=== PATIENT | male | born 1950 | race Caucasian/White ===

== ENCOUNTER 2016-06-16 00:22 | Emergency (ER) | payer OTHER ==
[2016-06-16 00:31] VITALS: BP 149/84; PULSE 91; RESP 16; TEMP 98.1; O2SAT 93
--- NOTE | 2016-06-16 00:38 | EDPHY ---
H & P Stated Complaint: sore throat x 5 days HPI/ROS: HPI CHIEF COMPLAINT: Sore throat x5 days, dry cough HISTORY OF PRESENT ILLNESS: This patient very pleasant 65-year-old male he presents emergency room at almost 1 o'clock in the morning with sore throat persistently getting worse over the past 5 days. Patient tells me that he was seen by his primary care doctor yesterday and had a strep test done however he is not aware of the results he tried to call their get the results and they are unable to provide him with an information. He tells me that his pain is persistent and he cannot tolerate it any more he denies trouble swallowing, he denies shortness of breath chest pain or fever. He denies change in voice. Denies drooling. Past Medical History: Hypertension, hyperlipidemia Past Surgical History: No significant surgical history except for cholecystectomy Social History: Occasional alcohol use, denies drugs or tobacco products Family History: Noncontributory ROS REVIEW OF SYSTEMS: A comprehensive 10 point review of systems is otherwise negative aside from elements mentioned in the history of present illness. Exam Constitutional triage nursing summary reviewed, vital signs reviewed, awake/ alert. Eyes normal conjunctivae and sclera, EOMI, PERRLA. HENT posterior pharynx erythematous uvula slightly swollen consistent with uvulitis, there is no exudate present, soft palate normal, uvula is midline, no stridor, no trismus, no signs of DINING ROOM BUSSER, no signs of Kwame's, normal dentition, TMs bilaterally are clear, there is nasal congestion on bilateral nares exam, atraumatic, moist mucus membranes, no epistaxis, neck supple/ no meningismus, no raccoon eyes. Respiratory clear to auscultation bilaterally, normal breath sounds, no respiratory distress, no wheezing. Cardiovascular rate normal, regular rhythm, no murmur, no edema, distal pulses normal. Gastrointestinal soft, non-tender, no rebound, no guarding, normal bowel sounds, no distension, no pulsatile mass. Genitourinary no CVA tenderness. Musculoskeletal no midline vertebral tenderness, full range of motion, no calf swelling, no tenderness of extremities, no meningismus, good pulses, neurovascularly intact. Skin pink, warm, & dry, no rash, skin atraumatic. Neurologic awake, alert and oriented x 3, AAOx3, moves all 4 extremities equally, motor intact, sensory intact, CN II-XII intact, normal cerebellar, normal vision, normal speech. Psychiatric normal mood/affect. Heme/Lymph/Immune no lymphadenopathy. Differential Diagnosis:includes but is not limited to in a particular order, strep pharyngitis, viral pharyngitis, uvulitis Medical Decision Making: I have sent a rapid strep. Patient has been given ibuprofen 800 mg here in emergency room, 1st dose of amoxicillin and Decadron 8 mg. Will empirically treat for strep pharyngitis given symptoms have been persistent for 5 days his uvula is swollen and he has somewhat significant amount of pain. There is no signs of deeper space infection on exam no indication to image. Will place on a prescription of amoxicillin, Decadron for 3 days, ibuprofen he does understand if he develops any worsening symptoms return to the emergency room. This includes high fever, trouble swallowing, change in voice. Rapid strep negative. We will still treat. Patient understands return emergency room if develops worsening symptoms questions concerns Source: Patient - Personal History Current Tetanus/Diphtheria Vaccine: Unsure Current Tetanus Diphtheria and Acellular Pertussis (TDAP): Unsure - Medical/Surgical History Hx Asthma: No Hx Chronic Respiratory Disease: No Hx Diabetes: No Hx Cardiac Disease: No Hx Renal Disease: No Hx Cirrhosis: No Hx Alcoholism: No Hx HIV/AIDS: No Hx Splenectomy or Spleen Trauma: No Other PMH: HTN, High cholesterol - Social History Smoking Status: Never smoked Constitutional: Initial Vital Signs Temperature (C) 36.7 C 06/16/16 00:27 Heart Rate 91 06/16/16 00:27 Respiratory Rate 16 06/16/16 00:27 Blood Pressure 149/84 H 06/16/16 00:27 O2 Sat (%) 93 06/16/16 00:27 O2 Delivery Mode Room Air Allergies/Adverse Reactions: No Known Allergies Allergy (Unverified 06/16/16 00:26) Home Medications: Medication Instructions Recorded AMITRIPTYLINE HCL 06/16/16 Amoxicillin 500 mg PO TID 7 Days 06/16/16 Dexamethasone [Decadron 4 MG (*)] 4 mg PO DAILY #3 tab 06/16/16 Ibuprofen [Motrin (*)] 800 mg PO Q6-8PRN #10 tab 06/16/16 Lisinopril 06/16/16 SIMVASTATIN 06/16/16 Medical Decision Making - Data Points Laboratory Results: 06/16/16 06/16/16 Unknown 00:45 Group A Strep Screen NEGATIVE (NEGATIVE) Group A Strep DNA Pending Medications Given: Discontinued Medications Amoxicillin (Amoxicillin) 500 mg PO EDNOW ONE PRN Reason: Protocol Stop: 06/16/16 00:48 Last Admin: 06/16/16 00:58 Dose: 500 mg Dexamethasone (Decadron) 8 mg PO EDNOW ONE Stop: 06/16/16 00:48 Last Admin: 06/16/16 00:58 Dose: 8 mg Ibuprofen (Motrin) 800 mg PO EDNOW ONE Stop: 06/16/16 00:48 Last Admin: 06/16/16 00:52 Dose: Not Given Departure - Departure Disposition: Home, Routine, Self-Care Clinical Impression: Strep pharyngitis Condition: Good Instructions: Pharyngitis (ED), Tonsillitis (ED), Uvulitis (ED), Strep Throat ( ED) Additional Instructions: 1. Return to the emergency room if he develops worsening symptoms questions or concerns. 2. please take antibiotic as prescribed 3. take this with food not on an empty stomach 4. reasons to return to the emergency room include worsening pain, trouble swallowing, high fever or you do not feel well. 5. Please also follow up with your primary care doctor Referrals: Ellen Tony MD [Primary Care Provider] - As per Instructions Prescriptions: Amoxicillin 500 mg PO TID 7 Days Dexamethasone [Decadron 4 MG (*)] 4 mg PO DAILY #3 tab Ibuprofen [Motrin (*)] 800 mg PO Q6-8PRN #10 tab
[2016-06-16] MEDS ORDERED: IBUPROFEN 200 MG TAB PO ONE (00:47)
[2016-06-16] MEDS ORDERED: DEXAMETHASONE 4 MG TAB PO ONE (00:47)
== END 2016-06-16 01:27 | disposition home or self-care (01) ==
DX: J02.0 Streptococcal pharyngitis (principal); I10 Essential (primary) hypertension